=== PATIENT | male | born 1980 | race African-American/Black ===

== ENCOUNTER 2021-11-15 22:33 | Inpatient (IN) | payer MEDICAID ==
[~2021-11-15] VITALS: Ht 182.9 cm; Wt 77.1 kg
[2021-11-15] MEDS ORDERED: SODIUM CHLORIDE 0.9% 1,000 ML IV ONE (22:45)
[2021-11-15] MEDS ORDERED: LORAZEPAM 2MG/ML CPJ IM ONE (23:45)
[2021-11-16 00:37] LABS: HEMATOCRIT. 41.1 % (42.0-52.0); HEMOGLOBIN. 12.9 g/dL (14.0-18.0); MEAN CORPUSCULAR HEMOGLOBIN 25.5 pg (28.0-32.0); MEAN CORPUSCULAR VOLUME 81.3 fL (80.0-94.0); MEAN PLATELET VOLUME 8.9 fl (7.4-10.4); PLATELET 154 x1000/uL (130-400); RED BLOOD CELL COUNT 5.06 mill/uL (4.7-6.1); RED CELL DISTRIBUTION WIDTH 15.5 % (11.6-14.6)
[2021-11-16 00:43] LABS: CHLORIDE 111 mEq/L (98-107)
[2021-11-16 00:45] LABS: CLARITY URINE CLEAR (CLEAR); COLOR URINE YELLOW (YELLOW); KETONES URINE TRACE (NEGATIVE); LEUKOCYTE ESTERASE URINE NEGATIVE (NEGATIVE); NITRITE URINE NEGATIVE (NEGATIVE); OCCULT BLOOD URINE NEGATIVE (NEGATIVE); PROTEIN URINE TRACE (NEGATIVE); SPECIFIC GRAVITY URINE 1.033 (1.005-1.030); UROBILINOGEN URINE 0.2 E.U./dL (0.2-1.0)
[2021-11-16 00:46] LABS: ETHANOL BLOOD < 10 mg/dL
[2021-11-16 00:54] LABS: *AMPHETAMINES SCREEN URINE NEGATIVE (NEGATIVE); *BARBITURATES SCREEN URINE NEGATIVE (NEGATIVE); *BENZODIAZEPINES SCREEN URINE NEGATIVE (NEGATIVE); *COCAINE SCREEN URINE NEGATIVE (NEGATIVE); METHADONE URINE SCREEN NEGATIVE (NEGATIVE); OPIATES URINE SCREEN NEGATIVE (NEGATIVE)
[2021-11-16 00:55] LABS: CANNABINOID URINE SCREEN NEGATIVE (NEGATIVE); PHENCYCLIDINE URINE SCREEN NEGATIVE (NEGATIVE)
[2021-11-16 01:03] LABS: CREATINE KINASE 1338 IU/L (39-308)
[2021-11-16] MEDS ORDERED: CEFTRIAXONE 1 G PREMIX 50 ML IV ONE (01:30)
[2021-11-16] MEDS ORDERED: SODIUM CHLORIDE 0.9% 1,000 ML IV ONE (01:30)
[2021-11-16 01:43] LABS: PLATELET ESTIMATE NORMAL
[2021-11-16 10:35] VITALS: BP 130/70
[2021-11-16 12:45] VITALS: BP 129/85
[2021-11-16 15:55] VITALS: BP 125/83
[2021-11-16] MEDS: SODIUM CHLORIDE 0.45% 1,000 ML IV SCH ×2 (19:34→20:27)
[2021-11-16 20:00] VITALS: BP 104/64
[2021-11-16] MEDS ORDERED: HALOPERIDOL LACTATE 5MG/ML VIAL IM PRN (22:15)
[2021-11-17] VITALS: BP 120/79
[2021-11-17 03:35] VITALS: BP 108/69
[2021-11-17] MEDS: SODIUM CHLORIDE 0.45% 1,000 ML IV SCH (06:07)
[2021-11-17 08:05] VITALS: BP 113/76
[2021-11-17] MEDS ORDERED: ASPIRIN 81MG EC TABLET PO SCH (09:00)
== END 2021-11-17 13:00 | disposition left against medical advice (07) | DRG 52 ==
LOC: ER 22:33 → EDBD 11-16 01:14 → MICUSO 11-16 01:14 → 6WST 11-16 06:22
PROVIDERS: ADMIT Internal Medicine; ATTEND Internal Medicine
DX: G93.41 Metabolic encephalopathy (principal); M62.82 Rhabdomyolysis; E87.8 Other disorders of electrolyte and fluid balance, not elsewhere classified; D64.9 Anemia, unspecified; F17.200 Nicotine dependence, unspecified, uncomplicated; Z20.822 Contact with and (suspected) exposure to COVID-19; Z53.29 Procedure and treatment not carried out because of patient's decision for other reasons; R40.2243 Coma scale, best verbal response, confused conversation, at hospital admission
CPT/HCPCS: 36415; 80053; 80305; 80307; 80320; 80329; 81003; 82140; 82550; 85025; 87426; 93005; 99291; C1893; J0696; J2060; J7030; G0480